=== PATIENT | male | born 1980 | race Caucasian/White ===

== ENCOUNTER 2023-07-03 13:48 | Emergency (ER) | payer SELFPAY ==
[2023-07-03 13:59] VITALS: BP 137/86; PULSE 82; RESP 18; TEMP 97; BMI 29.1
== END 2023-07-03 16:04 | disposition home or self-care (01) ==
LOC: JER 13:48
DX: R51.9 Headache, unspecified (principal); S09.90XA Unspecified injury of head, initial encounter; H53.8 Other visual disturbances; W22.8XXA Striking against or struck by other objects, initial encounter
CPT/HCPCS: 70450-TC; 99284-25